=== PATIENT | male | born 1945 | race Caucasian/White ===

== ENCOUNTER → 2020-10-14 08:35 | Outpatient (CLI) | payer MEDICARE, OTHER, SELFPAY ==
[2020-10-14 19:04] LABS: Add Manual Diff / Slide Review NO; Basophils Absolute Auto 0 /uL (0-100); Basophils Percent Auto 0.7 % (0-2); Eosinophils Absolute Auto 100 /uL (0-450); Eosinophils Percent Auto 2.1 % (2-4); Hematocrit 42.6 % (41-53); Hemoglobin 14.3 g/dL (13.5-17.5); Lymphocytes Absolute Auto 1400 /uL (1100-4500); Lymphocytes Percent Auto 19.9 % (25-40); Mean Corpuscular HGB Conc 33.5 % (30-36); Mean Corpuscular Hemoglobin 31.5 PG (26-34); Mean Corpuscular Volume 93.8 fL (80-100); Monocytes Absolute Auto 700 /uL (0-900); Neutrophils Absolute Auto 4600 /uL (1500-7000); Neutrophils Percent Auto 67.3 % (50-75); Platelet Count 246 X10^3/uL (150-400); Red Blood Cell Count 4.54 X10^6/uL (4.5-5.9); Red Cell Distribution Width 14.1 % (11.6-14.8); White Blood Cell Count 6.9 X10^3/uL (4.5-11.0)
[2020-10-14 19:07] LABS: Alanine Aminotransferase 41 IU/L (<50); Albumin Globulin Ratio 1.4 (1.0-2.8); Alkaline Phosphatase 75 U/L (38-126); Aspartate Aminotransferase 40 IU/L (17-59); BUN Creatinine Ratio 28.8 (6-22); Bilirubin Total 0.6 mg/dL (0.2-1.3); Blood Urea Nitrogen 17 mg/dL (9-20); Calcium 9.8 mg/dL (8.4-10.2); Carbon Dioxide 29 mmol/L (22-32); Chloride 102 mmol/L (98-107); Cholesterol 127 mg/dL (140-199); Estimated Glomerular Filt Rate > 60.0 mL/min (>60); Globulin 2.9 g/dL (1.7-4.1); Glucose 125 mg/dL (80-110); HDL Cholesterol 49 mg/dL (40-60); HEMOLYSIS < 15 (0-50); LDL Cholesterol Calculated 59 mg/dL (<100); Potassium 4.3 mmol/L (3.4-5.1); Sodium 138 mmol/L (137-145); Total Protein 6.9 g/dL (6.3-8.2); Triglycerides 96 mg/dL (35-150)
[2020-10-14 19:41] LABS: Prostate Specific Antigen < 0.064 ng/mL (0.10-4.00)
== END ==
PROVIDERS: PCP Physician Assistant; Visit Provider Physician Assistant
DX: E78.5 Hyperlipidemia, unspecified (principal); I10 Essential (primary) hypertension; Z85.46 Personal history of malignant neoplasm of prostate
CPT/HCPCS: 80053; 80061; 84153; 85025

== ENCOUNTER 2022-07-13 21:04 | Emergency (ER) | payer MEDICARE, SELFPAY ==
[2022-07-13] VITALS (8 sets, daily range): BP systolic 118–159; BP diastolic 73–104; PULSE 79–152; RESP 18–26; TEMP 36.6; O2SAT 96–97; BMI 32.1
--- NOTE | 2022-07-13 21:28 | DI.RAD.S_ITS ---
PROCEDURE: XR CHEST 1V INDICATIONS: chest pain TECHNIQUE: One view of the chest was acquired. COMPARISON: None. FINDINGS: Surgical changes and devices: None. Lungs and pleura: Low lung volumes. Linear right lung base opacities, probably scarring. No effusions Mediastinum: Mediastinal contours appear normal. Heart size is normal. Bones and chest wall: No suspicious bony lesions. Overlying soft tissues appear unremarkable. IMPRESSION: Low lung volumes. Suspected atelectasis or scarring at the right lung base. Consider future imaging surveillance to assess for resolution. No acute radiographic abnormality. Dictated by: Ever Stroud M.D. on 07/13/2022 at 22:00 Approved by: Ever Stroud M.D. on 07/13/2022 at 22:01
[2022-07-13 21:46] LABS: Add Manual Diff / Slide Review NO; Basophils Absolute Auto 100 /uL (0-100); Basophils Percent Auto 0.9 % (0-2); Eosinophils Absolute Auto 100 /uL (0-450); Hemoglobin 14.1 g/dL (13.5-17.5); Lymphocytes Absolute Auto 2100 /uL (1100-4500); Lymphocytes Percent Auto 19.3 % (25-40); Mean Corpuscular HGB Conc 33.5 % (30-36); Mean Corpuscular Hemoglobin 31.8 PG (26-34); Monocytes Absolute Auto 800 /uL (0-900); Monocytes Percent Auto 7.7 % (3-14); Neutrophils Absolute Auto 7900 /uL (1500-7000); Neutrophils Percent Auto 71.1 % (50-75); Platelet Count 321 X10^3/uL (150-400); Red Blood Cell Count 4.42 X10^6/uL (4.5-5.9); Red Cell Distribution Width 13.9 % (11.6-14.8); White Blood Cell Count 11.1 X10^3/uL (4.5-11.0)
--- NOTE | 2022-07-13 21:54 | ED.ARRPALP ---
HPI - Arrhythmia/Palpitations General Chief Complaint: Arrhythmia/Palpitations Stated Complaint: states rapid heart rate Time Seen by Provider: 07/13/22 21:40 Source: patient Mode of arrival: Ambulatory History of Present Illness HPI narrative: Patient is a 77-year-old male history of diabetes hypertension presenting today with fast heart rate. He reports that he takes his blood pressure daily he has a hole backward is recorded. Yesterday morning he noted that he would a fast heart rate of 153. This morning he said it was normal however tonight he rechecked his blood pressure in his heart rate was still fast so he came to the ED. He denies any chest pain palpitations dizziness or lightheadedness. He reports that he is always short of breath with exertion he denies any orthopnea. Denies any fever chills or cough. Related Data Home Medications Medication Instructions Recorded Confirmed atenolol 25 mg tablet 12.5 mg PO DAILY 09/17/20 11/10/21 omeprazole 20 mg capsule,delayed 20 mg PO DAILY 09/17/20 11/10/21 release simvastatin 10 mg tablet 10 mg PO DAILY 09/17/20 11/10/21 cholecalciferol (vitamin D3) 50 50 mcg PO DAILY 09/22/20 11/10/21 mcg (2,000 unit) capsule flaxseed oil 1,000 mg capsule 1,000 mg PO DAILY 09/22/20 11/10/21 magnesium oxide 400 mg (241.3 mg 400 mg PO DAILY 09/22/20 11/10/21 magnesium) tablet omega 2-vfv-vbt-fish oil 1,000 mg 1 cap PO DAILY 09/22/20 11/10/21 (120 mg-180 mg) capsule (Fish Oil) aspirin 81 mg tablet,delayed 81 mg PO DAILY 11/10/21 11/10/21 release (Adult Aspirin Regimen) Previous Rx's Medication Instructions Recorded benazepril 20 1 tab PO DAILY #90 tabs 09/22/20 mg-hydrochlorothiazide 25 mg tablet apixaban 5 mg tablet (Eliquis) 5 mg PO BID #60 tabs 07/14/22 atenolol 25 mg tablet 25 mg PO DAILY #30 tabs 07/14/22 Allergies Allergy/AdvReac Type Severity Reaction Status Date / Time Penicillins AdvReac Intermediate SWELLING Verified 11/10/21 10:49 Review of Systems Review of Systems ROS Unobtainable: All systems reviewed & are unremarkable except as noted in HPI and below Patient History Medical History Lower urinary tract symptoms (LUTS) Prostate cancer Puncture wound of right ring finger Surgical History History of appendectomy History of circumcision History of prostatectomy History of total adrenalectomy History of vasectomy Social History marital status: leisure activities: other Smoking Status: Never smoker alcohol intake: never caffeine: Yes Type(s) of exercise: walking Smoking Status: Never smoker Substance Use Type: does not use Exam Initial Vital Signs Initial Vital Signs: Vital Signs Temperature 97.9 F 07/13/22 21:12 Pulse Rate 140 H 07/13/22 21:12 Respiratory Rate 18 07/13/22 21:12 Blood Pressure 128/104 H 07/13/22 21:12 Pulse Oximetry 97 07/13/22 21:12 Oxygen Delivery Method Room Air 07/13/22 21:12 GENERAL: Alert pleasant well-appearing 77-year-old male HEENT: Head atraumatic,EOMI, pupils reactive, face symmetric, [moist] mucous membranes CARDIOVASCULAR: Tachycardic irregularly irregular RESPIRATORY: Breath sounds equal bilaterally, no wheezes rales or rhonchi. ABDOMEN: Soft, nontender. Normoactive bowel sounds all 4 quadrants. No guarding or rebound. EXTREMITIES: Normal range of motion, no clubbing or edema. Neurovascularly intact NEUROLOGICAL: Alert and oriented x4.Normal gait and speech. SKIN: Warm, dry, no laceration, no petechiae, no rashes or lesions. Course Orders Ordered: ED Orders 07/13/22 21:20 BNP [NT-proBNP (BNP-Adult 18+)] Stat Comprehensive Metabolic Panel Stat Lipase Stat Magnesium Stat TSH [Thyroid Stimulating Hormone] Stat Troponin & CK Cardiac Panel Stat 07/13/22 21:28 XR chest 1V Stat 07/13/22 21:32 Complete Blood Count AUTO DIFF Stat PTT Partial Thromboplastin Nate Stat Prothrombin Time INR Stat 07/13/22 22:21 EKG-12 Lead Stat 07/14/22 00:08 COVID19 -Nasal RAPID Stat Discontinued Medications Apixaban (Apixaban 5 Mg Tablet) 5 mg PO NOW ONE Stop: 07/14/22 00:00 Last Admin: 07/14/22 00:04 Dose: 5 mg Documented By: VELIA Aspirin (Aspirin 81 Mg Chew Tab) 324 mg PO NOW ONE Stop: 07/13/22 21:29 Last Admin: 07/13/22 21:58 Dose: 324 mg Documented By: VELIA Atenolol (Atenolol 25 Mg Tablet) 25 mg PO NOW ONE Stop: 07/14/22 00:22 Last Admin: 07/14/22 00:33 Dose: 25 mg Documented By: VELIA Diltiazem HCl (Diltiazem 5 Mg/Ml Sdv) 10 mg IV NOW ONE Stop: 07/13/22 21:54 Last Admin: 07/13/22 21:59 Dose: 10 mg Documented By: VELIA Diltiazem HCl (Diltiazem 5 Mg/Ml Sdv) 10 mg IV NOW ONE Stop: 07/13/22 22:16 Last Admin: 07/13/22 22:44 Dose: 10 mg Documented By: VELIA Vital Signs Vital signs: Vital Signs - 8 hr 07/13/22 22:44 07/13/22 23:00 07/13/22 22:30 Pulse Rate 152 H 79 Respiratory Rate 18 Blood Pressure 134/81 134/81 134/81 Pulse Oximetry 07/13/22 22:30 07/13/22 23:00 07/13/22 23:00 Pulse Rate 117 H 117 H Respiratory Rate 20 18 Blood Pressure 118/73 Pulse Oximetry 96 96 07/13/22 23:30 07/13/22 23:30 07/14/22 00:00 Pulse Rate 84 95 H Respiratory Rate 21 22 Blood Pressure 122/84 Pulse Oximetry 96 97 07/14/22 00:30 07/14/22 00:30 Pulse Rate 88 Respiratory Rate 18 Blood Pressure 126/80 Pulse Oximetry 97 MDM - Arrhythmia/Palpitations Lab Data 07/13/22 21:32 07/13/22 21:20 Labs: Lab Results 07/13/22 07/13/22 07/13/22 Range/Units 21:20 21:20 21:20 WBC (4.5-11.0) X10^3/uL RBC (4.5-5.9) X10^6/uL Hgb (13.5-17.5) g/dL Hct (41-53) % MCV (80-100) fL MCH (26-34) PG MCHC (30-36) % RDW (11.6-14.8) % Plt Count (150-400) X10^3/uL Neut % (Auto) (50-75) % Lymph % (Auto) (25-40) % [place] % (Auto) (3-14) % Eos % (Auto) (2-4) % Baso % (Auto) (0-2) % Neut # (Auto) (3674-3509) /uL Lymph # (Auto) (0966-1711) /uL [place] # (Auto) (0-900) /uL Eos # (Auto) (0-450) /uL Baso # (Auto) (0-100) /uL PT (10.1-12.7) SECONDS INR (0.9-1.3) APTT (26-36) SECONDS Sodium 140 (137-145) mmol/L Potassium 4.2 (3.4-5.1) mmol/L Chloride 102 (98-107) mmol/L Carbon Dioxide 30 (22-32) mmol/L BUN 17 (9-20) mg/dL Creatinine 0.96 (0.66-1.25) mg/dL Estimated GFR > 60 (>60) mL/min BUN/Creatinine Ratio 17.7 (6-22) Glucose 109 (80-110) mg/dL Calcium 9.1 (8.4-10.2) mg/dL Magnesium 2.1 (1.6-2.3) mg/dL Total Bilirubin 0.3 (0.2-1.3) mg/dL AST 30 (17-59) IU/L ALT 37 (<50) IU/L Alkaline Phosphatase 101 (38-126) U/L Total Creatine Kinase 96 (55-170) U/L CK-MB (CK-2) TNP CK-MB (CK-2) Rel Index TNP Troponin I < 0.012 (0.01-0.034) ng/mL NT-Pro-B Natriuret Pep 2720 H (<450) pg/mL Total Protein 7.5 (6.3-8.2) g/dL Albumin 4.1 (3.5-5.0) g/dL Globulin 3.4 (1.7-4.1) g/dL Albumin/Globulin Ratio 1.2 (1.0-2.8) Lipase 45 (23-300) U/L TSH 2.41 (0.47-4.68) uIU/mL SARS-CoV-2 (PCR) (Negative) 07/13/22 07/13/22 07/13/22 Range/Units 21:32 21:32 23:30 WBC 11.1 H (4.5-11.0) X10^3/uL RBC 4.42 L (4.5-5.9) X10^6/uL Hgb 14.1 (13.5-17.5) g/dL Hct 42.0 (41-53) % MCV 95.0 (80-100) fL MCH 31.8 (26-34) PG MCHC 33.5 (30-36) % RDW 13.9 (11.6-14.8) % Plt Count 321 (150-400) X10^3/uL Neut % (Auto) 71.1 (50-75) % Lymph % (Auto) 19.3 L (25-40) % [place] % (Auto) 7.7 (3-14) % Eos % (Auto) 1.0 L (2-4) % Baso % (Auto) 0.9 (0-2) % Neut # (Auto) 7900 H (7212-4752) /uL Lymph # (Auto) 2100 (0529-9024) /uL [place] # (Auto) 800 (0-900) /uL Eos # (Auto) 100 (0-450) /uL Baso # (Auto) 100 (0-100) /uL PT 12.6 (10.1-12.7) SECONDS INR 1.1 (0.9-1.3) APTT 31 (26-36) SECONDS Sodium (137-145) mmol/L Potassium (3.4-5.1) mmol/L Chloride (98-107) mmol/L Carbon Dioxide (22-32) mmol/L BUN (9-20) mg/dL Creatinine (0.66-1.25) mg/dL Estimated GFR (>60) mL/min BUN/Creatinine Ratio (6-22) Glucose (80-110) mg/dL Calcium (8.4-10.2) mg/dL Magnesium (1.6-2.3) mg/dL Total Bilirubin (0.2-1.3) mg/dL AST (17-59) IU/L ALT (<50) IU/L Alkaline Phosphatase (38-126) U/L Total Creatine Kinase (55-170) U/L CK-MB (CK-2) CK-MB (CK-2) Rel Index Troponin I (0.01-0.034) ng/mL NT-Pro-B Natriuret Pep (<450) pg/mL Total Protein (6.3-8.2) g/dL Albumin (3.5-5.0) g/dL Globulin (1.7-4.1) g/dL Albumin/Globulin Ratio (1.0-2.8) Lipase (23-300) U/L TSH (0.47-4.68) uIU/mL SARS-CoV-2 (PCR) Negative (Negative) Imaging Data Chest x-ray: Radiologist's Impresson: PROCEDURE:? XR CHEST 1V ? INDICATIONS:? chest pain ? TECHNIQUE:? One view of the chest was acquired.? ? COMPARISON:? None. ? FINDINGS:? ? Surgical changes and devices:? None.? ? Lungs and pleura:? Low lung volumes.? Linear right lung base opacities, probably scarring.? No effusions ? Mediastinum:? Mediastinal contours appear normal.? Heart size is normal.? ? Bones and chest wall:? No suspicious bony lesions.? Overlying soft tissues appear unremarkable.? ? IMPRESSION:? Low lung volumes.? Suspected atelectasis or scarring at the right lung base. ?Consider future imaging surveillance to assess for resolution. No acute radiographic abnormality. ? ? Dictated by: Ever Stroud M.D. on 07/13/2022 at 22:00 ? ? Approved by: Ever Stroud M.D. on 07/13/2022 at 22:01? ECG Data Interpretation: Atrial fibrillation rate 153 right bundle-branch block noted no ST changes no priors to compare EKG 2. Atrial fibrillation rate 92 right bundle-branch noted no ST elevations MDM Narrative Medical decision making narrative: Patient is 77-year-old male history of hypertension diabetes hyperlipidemia presents today with asymptomatic AFib with RVR rate in the 140s to 150s. He is given 10 mg diltiazem and did actually sews heart rate down into the 100s briefly however it quickly went back up so he was given another 10 mg. This seems to have slowed his heart rate monitor and EKG clearly show atrial fibrillation. He is no prior history of atrial fibrillation. He does take atenolol 12.5 mg in the morning and an aspirin. He is a chads Vasc score of 4, and would likely benefit from other anticoagulation medication. BNP is elevated at 2700 lung sounds are clear he is not hypoxic. He does report ongoing shortness of breath which he does not report is any worse than normal. No evidence of congestive heart failure exacerbation. He does need outpatient workup and echocardiogram. He is given a 1st dose of Eliquis here in the emergency department along with prescription. There is no contraindication to anticoagulation he is not a fall risk. Is given a full-dose 25 mg of atenolol and I recommend he increase the atenolol to full 25 mg daily. He is not hypotensive here in the emergency department and should tolerated. Blood work shows mild leukocytosis, electrolytes kidney function liver enzymes and troponin are within normal limits. TSH also within normal limits. Patient's heart rate is controlled with heart rate less than 110 in the ED after 2nd dose of diltiazem. It does appear to be spitting up just a little bit so given the atenolol. I think his rate will be controlled no need for admission. Discussion with him and his about anticoagulation and risks. is on Eliquis they are well aware of the complications she actually just had some bleeding requiring hospitalization secondary to the Eliquis. 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 Discharge Plan Departure Patient Disposition: Home Clinical Impression: Atrial fibrillation Instructions: DI for Atrial Fibrillation Activity Restrictions/Additional Instructions: *You have been diagnosed with atrial fibrillation *What to do: At this time you will need an echocardiogram of your heart and close follow-up with your PCP. You are risk at stroke. You have been started on Eliquis which is a blood thinner. Please avoid any high-risk activities. Be cautious of falling if you should fall and hit her head you must return to the emergency department *Continue to take medications as directed-> [facility] Mail order delivery Stop taking aspirin Increase atenolol from 12.5 mg to 25 mg once daily Eliquis 5 mg twice a day *Follow up with your primary care provider in 2-3 days or call [phone] *Return to ER if you should have heart rate greater than 120, chest pain dizziness lightheadedness shortness of breath [or] any new, worsening or concerning symptoms Prescriptions: New atenolol 25 mg tablet 25 mg PO DAILY Qty: 30 0RF Eliquis 5 mg tablet 5 mg PO BID Qty: 60 0RF No Action cholecalciferol (vitamin D3) 50 mcg (2,000 unit) capsule 50 mcg PO DAILY magnesium oxide 400 mg (241.3 mg magnesium) tablet 400 mg PO DAILY omega [id number]-fish oil [Fish Oil] 1,000 mg (120 mg-180 mg) capsule 1 cap PO DAILY flaxseed oil 1,000 mg capsule 1,000 mg PO DAILY Rx Instructions: administer with a meal benazepril-hydrochlorothiazide 20-25 mg tablet 1 tab PO DAILY Qty: 90 3RF omeprazole 20 mg capsule,delayed release(DR/EC) 20 mg PO DAILY simvastatin 10 mg tablet 10 mg PO DAILY atenolol 25 mg tablet 12.5 mg PO DAILY Rx Instructions: TAKE 0.5 TABLET (12.5 MG) BY MOUTH DAILY aspirin [Adult Aspirin Regimen] 81 mg tablet,delayed release (DR/EC) 81 mg PO DAILY Referrals: Dre Rueda MD [Primary Care Provider] - Stand Alone Forms: Patient Portal/API
[2022-07-13 21:58] LABS: INR 1.1 (0.9-1.3); Prothrombin Time 12.6 SECONDS (10.1-12.7)
[2022-07-13] MEDS: ASPIRIN 81 MG CHEW TAB 324 MG PO (21:58)
[2022-07-13] MEDS: dilTIAZem 5 MG/ML SDV 10 MG IV ×2 (21:59→22:44)
[2022-07-13 22:01] LABS: PTT Partial Thromboplastin Tim 31 SECONDS (26-36)
[2022-07-13 22:46] LABS: Alanine Aminotransferase 37 IU/L (<50); Albumin 4.1 g/dL (3.5-5.0); Albumin Globulin Ratio 1.2 (1.0-2.8); Alkaline Phosphatase 101 U/L (38-126); Aspartate Aminotransferase 30 IU/L (17-59); BUN Creatinine Ratio 17.7 (6-22); Bilirubin Total 0.3 mg/dL (0.2-1.3); Blood Urea Nitrogen 17 mg/dL (9-20); Calcium 9.1 mg/dL (8.4-10.2); Carbon Dioxide 30 mmol/L (22-32); Chloride 102 mmol/L (98-107); Creatine Kinase 96 U/L (55-170); Estimated Glomerular Filt Rate > 60 mL/min (>60); Globulin 3.4 g/dL (1.7-4.1); Glucose 109 mg/dL (80-110); HEMOLYSIS 15 (0-50); Lipase 45 U/L (23-300); Magnesium 2.1 mg/dL (1.6-2.3); Potassium 4.2 mmol/L (3.4-5.1); Sodium 140 mmol/L (137-145); Total Protein 7.5 g/dL (6.3-8.2)
[2022-07-13 22:55] LABS: NT-proBNP (BNP-Adult 18+) 2720 pg/mL (<450)
[2022-07-13 22:58] LABS: Troponin I < 0.012 ng/mL (0.01-0.034)
[2022-07-13 23:17] LABS: Thyroid Stimulating Hormone 2.41 uIU/mL (0.47-4.68)
[2022-07-14] VITALS: PULSE 95; RESP 22; O2SAT 97
[2022-07-14] MEDS: APIXABAN 5 MG TABLET PO (00:04)
[2022-07-14 00:30] VITALS: BP 126/80; PULSE 88; RESP 18; O2SAT 97
[2022-07-14] MEDS: atenoloL 25 MG TABLET PO (00:33)
[2022-07-14 00:36] LABS: COVID19 -Nasal RAPID Negative (Negative)
== END 2022-07-14 00:58 | disposition home or self-care (01) ==
PROVIDERS: Emergency Provider Emergency Medicine; PCP Family Medicine
DX: I48.91 Unspecified atrial fibrillation (principal); R07.9 Chest pain, unspecified; Z79.01 Long term (current) use of anticoagulants; Z20.822 Contact with and (suspected) exposure to COVID-19
CPT/HCPCS: 36415; 71045; 80053; 82550; 83690; 83735; 83880; 84443; 84484; 85025; 85610; 85730; 87635; 93005; 93010; 96374; 96376; 99284; C9803